=== PATIENT | female | born 1955 | race Caucasian/White ===

== ENCOUNTER → 2018-01-20 14:23 | Outpatient (CLI) | payer OTHER, SELFPAY ==
[2018-01-22 16:10] LABS: Endomysial Antibody IgA Negative (Negative)
[2018-01-25 11:38] LABS: Immunoglobulin A 296 mg/dL (87-352); t-Transglutaminase IgA <2 U/mL (0-3)
== END ==
LOC: MTLAB 14:31
PROVIDERS: Family Provider Family Medicine; PCP Family Medicine; Visit Provider Internal Medicine Gastroenterology
DX: R19.7 Diarrhea, unspecified (principal)
CPT/HCPCS: 36415; 82784; 83516; 86140; 86255